=== PATIENT | male | born 1950 | race Asian ===

== ENCOUNTER 2021-12-02 04:32 | Emergency (ER) | payer MEDICARE, SELFPAY ==
[2021-12-02 04:42] VITALS: BP 189/108; PULSE 57; RESP 20; TEMP 35.9; O2SAT 97
--- NOTE | 2021-12-02 05:06 | ED.NURSE ---
Patient unable to provide urine sample at this time. Patient given a glass of water.
[2021-12-02] MEDS: predniSONE 20 MG TABLET 60 MG PO (05:14)
[2021-12-02] MEDS: KETOROLAC 30 MG/ML inj IM (05:16)
[2021-12-02 05:27] LABS: Appearance Urine Cloudy (Clear); Bilirubin Urine Negative (Negative); Blood Urine Negative (Negative); Color Urine Yellow (Yellow); Glucose Urine Negative (Negative); Ketones Urine Negative (Negative); Leukocyte Esterase Urine Negative (Negative); Nitrite Urine Negative (Negative); Protein Urine Negative (Negative)
[2021-12-02 05:43] LABS: Amorphous Sediment Urine Moderate; Bacteria Urine Few; RBC Urine 0-2 (0-2); WBC Urine 0-2 (0-5)
[2021-12-02 06:02] VITALS: BP 179/90; PULSE 51; RESP 16; O2SAT 97
--- NOTE | 2021-12-02 06:04 | ED_ITS ---
HPI - General Adult General Date Seen: 12/02/21 Chief complaint: Back Injury/Pain Stated complaint: Back Pain Time Seen by Provider: 12/02/21 04:50 Source: patient History of Present Illness HPI narrative: Patient is a 71-year-old male who presents for evaluation of back pain with radiation into the right leg. He says he has had back pain for quite some time, probably a couple of years, and sometimes he has radiation into the right leg, but he is usually able to use some face and do some stretches and his symptoms will improve. For the past couple of days, symptoms have not improved and tonight he was not able to sleep. He says symptoms radiate into the right leg down to his foot, although he is not able to identify a clear radicular dermatome for me. He does not have any weakness or numbness, does not have any bowel or bladder changes. Denies any fevers, night sweats, weight loss. He says he talked to his primary doctor about his back pain a couple of weeks ago and x-rays were done which he reports were normal. I do not have access to those records. He is concerned that this might represent a kidney problem. He denies hematuria, dysuria, frequency. He does not have a history of kidney stones or other kidney problems. He has not been able to get comfortable with this back pain. He feels better if he walks leaning forward, but no position is entirely comfortable. It is more comfortable to sit rather than laid down, and he notes more pain when he is walking. Related Data Home Medications Medication Instructions Recorded Confirmed acetaminophen 500 mg tablet 1,000 mg PO Q4-6H PRN 12/02/21 12/02/21 (Tylenol Extra Strength) chlorthalidone 25 mg tablet 25 mg PO DAILY 12/02/21 12/02/21 lisinopril 10 mg tablet 10 mg PO DAILY 12/02/21 12/02/21 pravastatin 40 mg tablet 20 mg PO .QHS 12/02/21 12/02/21 Allergies Allergy/AdvReac Type Severity Reaction Status Date / Time No Known Drug Allergies Allergy Verified 12/02/21 04:46 Review of Systems Status of ROS: Reports: 10 or more systems reviewed and unremarkable except as noted in History and below [facility] Medical History Hypertension Surgical History H/O left knee surgery Social History Smoking Status: Unknown if ever smoked Do you use any of these nicotine containing products: None Second hand tobacco smoke exposure: No How often do you have a drink containing alcohol: never AUDIT-C Alcohol total score: 0 Non-prescribed substance use: denies use service: No Exam Narrative: Exam Narrative: In general, an alert, nontoxic elderly male. Head: Normocephalic, atraumatic. Eyes: Pupils equal reactive. Conjunctivae are normal. ENT: Mucous membranes are moist. Neck: Supple without adenopathy. Heart: Regular rate and rhythm. No murmur. Lungs: Clear without wheezes or crackles. No increased work of breathing. Abdomen: Soft and nontender. No rebound guarding or rigidity. Back: No CVA tenderness. Extremities: Well perfused, pulses intact. No edema or tenderness. Neurologic: Alert, oriented to person and place. Speech fluent. Face symmetric. Moves extremities equally, strength is 5/ 5 in bilateral lower extremities. Sensation is intact to light touch. Gait stable. Skin: Warm and dry. Well perfused. Affect: Normal. Const: Vital Signs, click to edit/add: Vital Signs - 24 hr 12/02/21 04:42 12/02/21 06:02 Temperature 96.7 F L Pulse Rate [Left P ulse Oximeter] 57 L 51 L Respiratory Rate 20 16 Blood Pressure [Ri ght Upper Arm] 189/108 H 179/90 H Pulse Oximetry 97 97 Course Course Hospital Course: I did check a UA here just to reassure him that this was not related to his kidneys. I do think it sounds much more musculoskeletal. He has exacerbation with movement, radiation to the leg which do not sound kidney related to me. His urinalysis is negative in terms of having any red cells or white cells. I gave him 30 mg of IM Toradol as well as 60 mg of prednisone. He is not describing a clear dermatomal pattern but does have radiation to the foot, so I do think a radiculopathy as possible. He is not showing any red flags in terms of requiring immediate imaging. He appears comfortable here. We discussed that if he is not improving with conservative measures he may need additional imaging, but that is not something that needs to be done right away. He had questions about possible steroid injections as well as other follow-up questions which I answered. He can continue to use ice as needed. Would recommend continued Tylenol with the addition of ibuprofen periodically if needed. We will put him on a prednisone taper as well. If he has acute worsening or new symptoms such as weakness, bowel or bladder changes, would have him follow up more urgently. Otherwise, primary care follow-up if not improving over the next week or so. He tells me has an appointment made with his doctor at [facility] next Saturday, which should be adequate. He is hypertensive here, does have a history of hypertension. Again with his long history of back pain, exacerbation with movement, the presence of pain for a couple of days now, I do not think this represents something more acute like dissection. Vital Signs Vital signs: Initial Vital Signs Temperature 96.7 F L 12/02/21 04:42 Temperature Source Temporal Artery Scan 12/02/21 04:42 Pulse Rate 57 L 12/02/21 04:42 Respiratory Rate 20 12/02/21 04:42 Blood Pressure 189/108 H 12/02/21 04:42 Blood Pressure Mean 135 12/02/21 04:42 Blood Pressure Position Semi-Fowlers 12/02/21 04:42 Pulse Oximetry 97 12/02/21 04:42 Oxygen Delivery Method 12/02/21 04:42 Vital Signs Temperature 96.7 F L 12/02/21 04:42 Pulse Rate 57 L 12/02/21 04:42 Respiratory Rate 20 12/02/21 04:42 Blood Pressure 189/108 H 12/02/21 04:42 Pulse Oximetry 97 12/02/21 04:42 Temperature 96.7 F L 12/02/21 04:42 Pulse Rate 51 L 12/02/21 06:02 Respiratory Rate 16 12/02/21 06:02 Blood Pressure 179/90 H 12/02/21 06:02 Pulse Oximetry 97 12/02/21 06:02 Medical Decision Making Lab Data Labs: Lab Results 12/02/21 Range/Units 05:15 Urine Color Yellow (Yellow) Urine Appearance Cloudy A (Clear) Urine pH 7.0 (5.0-8.5) Ur Specific [place] 1.020 (1.000-1.030) Urine Protein Negative (Negative) Urine Glucose (UA) Negative (Negative) Urine Ketones Negative (Negative) Urine Blood Negative (Negative) Urine Nitrite Negative (Negative) Urine Bilirubin Negative (Negative) Urine Urobilinogen 1.0 (0.2-1.0) Ur Leukocyte Esterase Negative (Negative) Urine RBC 0-2 (0-2) Urine WBC 0-2 (0-5) Ur Squamous Epith Cells None (None-Few) Amorphous Sediment Moderate A (None) Urine Bacteria Few A (None) Discharge Plan Discharge Clinical Impression: Lumbar radiculopathy Patient Disposition: Home, Self-Care Condition: Stable Instructions: Lumbar Radiculopathy (ED), Back Pain (ED) Additional Instructions: Prednisone as follows: 3 tabs daily for 3 days, then 2 tabs daily for 3 days, then 1 tab daily for 3 days. Ice or heat as needed. Follow up with Dr. Mack if not improving over the next week or so, sooner if worsening pain or new symptoms such as weakness or bowel/bladder dysfunction. Your urine test is normal today. Tylenol 1000 mg +/- Ibuprofen 400 mg three times daily for pain. Prescriptions: No Action pravastatin 40 mg tablet 20 mg PO .QHS 0RF Label Comments: TAKE ONE-HALF TABLET BY MOUTH AT BEDTIME chlorthalidone 25 mg tablet 25 mg PO DAILY 0RF Label Comments: TAKE ONE TABLET BY MOUTH EVERY DAY lisinopril 10 mg tablet 10 mg PO DAILY 0RF Label Comments: TAKE ONE TABLET BY MOUTH EVERY DAY acetaminophen [Tylenol Extra Strength] 500 mg tablet 1,000 mg PO Q4-6H PRN0RF Follow Up/Referrals: Adán Mack MD [Primary Care Provider] - Stand Alone Forms: [employer] Info Instructions
== END 2021-12-02 06:20 | disposition home or self-care (01) ==
PROVIDERS: Emergency Provider Emergency Medicine; PCP Family Medicine
DX: M54.16 Radiculopathy, lumbar region (principal)
CPT/HCPCS: 81001; 87086; 96372; 99283; 99284; J1885; J7512

== ENCOUNTER 2023-04-16 09:32 | Outpatient (CLI) | payer MEDICARE, SELFPAY | END 2023-04-16 09:33 | disposition home or self-care (01) | LOC: INJ CL 09:33 | PROVIDERS: PCP Family Medicine; Visit Provider Family Medicine | DX: M54.16 Radiculopathy, lumbar region (principal); M48.062 Spinal stenosis, lumbar region with neurogenic claudication; M51.36 Other intervertebral disc degeneration, lumbar region | CPT/HCPCS: 62323; J0702; Q9966 ==